=== PATIENT | male | born 1950 | race Caucasian/White ===

== ENCOUNTER 2017-10-29 14:49 | Outpatient (RCR) | payer MEDICARE ==
[~2017-10-29 14:49] MED LIST: AGM875T PO; FLUT16SP22 NS; PRD20T PO; TELM1TAB2 PO
== END 2017-10-31 | disposition home or self-care (01) ==
PROVIDERS: ATTEND Physician Assistant Medical
DX: S46.011D Strain of muscle(s) and tendon(s) of the rotator cuff of right shoulder, subsequent encounter (principal); M25.511 Pain in right shoulder; W19.XXXD Unspecified fall, subsequent encounter

== ENCOUNTER 2017-11-12 13:15 | Outpatient (RCR) | payer MEDICARE | END 2017-11-12 15:42 | disposition home or self-care (01) | PROVIDERS: ATTEND Physician Assistant Medical | DX: S46.011D Strain of muscle(s) and tendon(s) of the rotator cuff of right shoulder, subsequent encounter (principal); M25.511 Pain in right shoulder; W19.XXXD Unspecified fall, subsequent encounter ==

== ENCOUNTER 2017-12-13 05:39 | Outpatient (CLI) | payer MEDICARE ==
[~2017-12-13] VITALS: Ht 175.3 cm; Wt 83.9 kg
[2017-12-13] MEDS ORDERED: HYDR-3820 PO (14:58)
[2017-12-13] MEDS ORDERED: FOLI1TAB24 PO (14:58)
[2017-12-13] MEDS ORDERED: BENA40TA5 PO (14:58)
[2017-12-13] MEDS ORDERED: FURO20TA4 PO (14:58)
[2017-12-13] MEDS ORDERED: ALLO100T PO (14:58)
[2017-12-13] MEDS ORDERED: APIX2.5T PO (14:58)
== END 2017-12-13 15:02 | disposition home or self-care (01) ==
LOC: PREOP 05:39
PROVIDERS: ATTEND Surgery
DX: Z01.818 Encounter for other preprocedural examination (principal)

== ENCOUNTER 2020-04-10 05:37 | Outpatient (RCR) | payer MEDICARE ==
[~2020-04-10] VITALS: Ht 175 cm; Wt 83.1 kg
[~2020-04-10 05:37] MED LIST changes: +ACET-2267 PO; +ACHYD1T PO; +ALLO100T PO; +APIX2.5T PO; +BENA40TA5 PO; +BIOT5CAP9 PO; +FOLI1TAB24 PO; +FURO20TA4 PO; +GABA-486 PO; +LEVO75TA PO; +RIVA10TA PO; +TRM50T PO
== END 2020-04-10 13:11 | disposition home or self-care (01) ==
LOC: PREOP 05:37
PROVIDERS: ATTEND Specialist
DX: Z01.812 Encounter for preprocedural laboratory examination (principal); Z20.828 Contact with and (suspected) exposure to other viral communicable diseases
CPT/HCPCS: 87635

== ENCOUNTER 2020-04-12 06:08 | Day surgery (SDC) | payer MEDICARE ==
[~2020-04-12] VITALS: Ht 175 cm; Wt 83.1 kg
[2020-04-12] MEDS ORDERED: POVIDONE (BETADINE) OPHTH SOLN 5% 30 ML OP ONE (06:15)
[2020-04-12] MEDS ORDERED: LIDOCAINE PF 1% 2 ML VIAL IR PRN (06:15)
[2020-04-12] MEDS ORDERED: MOXIFLOXACIN OPHTH SOLN 5 MG/ML 0.3 ML SYRINGE OP ONE (06:15)
[2020-04-12] MEDS ORDERED: TIMOLOL MALEATE 0.5% 5 ML (TIMOPTIC) BTL OU PRN (06:15)
[2020-04-12] MEDS: TETRACAINE 0.5% OPHTH SOLN 4 ML BTL (SINGLE DOSE ONLY) OU PRN ×4 (06:25→06:49)
[2020-04-12 06:30] VITALS: BP 134/91
[2020-04-12] MEDS: TROPICAMIDE 1% OPH SOLN (MYDRIACYL) 15 ML BTL OP SCH ×3 (06:33→06:49)
[2020-04-12] MEDS: PHENYLEPHRINE 10% OPHTH (NEO-SYN) 5 ML BTL OU SCH ×3 (06:33→06:49)
[2020-04-12] MEDS ORDERED: MIDAZOLAM 2 MG/2 ML (VERSED) VIAL ONE (07:29)
--- NOTE | 2020-04-12 07:30 | Ophthalmologist Pre-Op Note ---
Pre-Operative Progress Note H&P Reviewed The H&P was reviewed, patient examined and no changes noted. Date H&P Reviewed: Apr 12, 2020 Time H&P Reviewed: 07:30 Pre-Op Dx Cataract, Right Eye AMAURI ARTIS MD Apr 12, 2020 07:30
--- NOTE | 2020-04-12 07:50 | Ophthalmology Operative Report ---
Cataract removal/placement IOL PREOPERATIVE DIAGNOSIS: Cataract Right Eye POSTOPERATIVE DIAGNOSIS: Cataract Right Eye PROCEDURE: Cataract removal and placement of posterior chamber implant, right eye SURGEON: Mj Artis ANESTHESIA: Topical with sedation COMPLICATIONS: None ESTIMATED BLOOD LOSS: Minimal DESCRIPTION OF PROCEDURE: After proper informed consent was obtained, the patient, a 70 male, was taken to the Operating Room and the right eye was anesthetized with tetracaine. The right eye was then prepped and draped in the usual manner. A wire lid speculum was placed. A paracentesis was made at the left hand position. Preservative free lidocaine was injected into the anterior chamber followed by viscoelastic. A clear corneal incision was made in the temporal position. A capsulorrhexis was preformed and the central nuclear and cortical material were removed. The posterior capsule was polished and Emil 17.0 AU00T0 IOL was placed into the capsular bag. The residual viscoelastic was aspirated and balanced saline solution was injected into the anterior chamber. Moxifloxacin was injected into the anterior chamber. The wound was checked and found to be water tight. The patient tolerated the procedure well without complications. MJ ARTIS MD Apr 12, 2020 07:50
[2020-04-12 08:00] VITALS: BP 118/80
--- NOTE | 2020-04-12 10:15 | Anesthesia-General Post-Op ---
MAC Patient Condition Mental Status/LOC: Same as Preop Cardiovascular: Satisfactory Nausea/Vomiting: Absent Respiratory: Satisfactory Pain: Controlled Complications: Absent Post Op Complications Complications None Follow Up Care/Instructions Patient Instructions None needed. Anesthesiology Discharge Order Discharge Order Patient is doing well, no complaints, stable vital signs, no apparent adverse anesthesia problems. No complications reported per nursing. LOKI ZAMARRIPA CRNA Apr 12, 2020 10:15
[2020-04-12] MEDS ORDERED: acetaZOLAMIDE ER 500 MG CAP (DIAMOX SEQUELS) PO ONE (12:00)
== END 2020-04-12 08:00 | disposition home or self-care (01) ==
LOC: SDC 06:08
PROVIDERS: ATTEND Specialist
DX: H25.11 Age-related nuclear cataract, right eye (principal); I10 Essential (primary) hypertension; M06.9 Rheumatoid arthritis, unspecified; M19.90 Unspecified osteoarthritis, unspecified site; Z79.899 Other long term (current) drug therapy; Z80.8 Family history of malignant neoplasm of other organs or systems
CPT/HCPCS: 66984; V2632

== ENCOUNTER 2020-05-01 05:34 | Outpatient (RCR) | payer MEDICARE ==
[~2020-05-01] VITALS: Ht 175.3 cm; Wt 84.1 kg
[~2020-05-01 05:34] MED LIST changes: +ACHD5005 PO; +CYAN100088 PO; +CYCL5TAB PO; +GABA300C PO
== END 2020-05-01 10:16 | disposition home or self-care (01) ==
LOC: PREOP 05:34
PROVIDERS: ATTEND Specialist
DX: Z01.812 Encounter for preprocedural laboratory examination (principal); Z20.828 Contact with and (suspected) exposure to other viral communicable diseases
CPT/HCPCS: 87635

== ENCOUNTER 2020-05-03 08:09 | Day surgery (SDC) | payer MEDICARE ==
[~2020-05-03] VITALS: Ht 175.3 cm; Wt 84.1 kg
[2020-05-03] MEDS ORDERED: MIDAZOLAM 2 MG/2 ML (VERSED) VIAL ONE (08:15)
[2020-05-03 08:30] VITALS: BP 114/78
[2020-05-03] MEDS ORDERED: POVIDONE (BETADINE) OPHTH SOLN 5% 30 ML OP ONE (08:30)
[2020-05-03] MEDS ORDERED: LIDOCAINE PF 1% 2 ML VIAL IR PRN (08:30)
[2020-05-03] MEDS ORDERED: TIMOLOL MALEATE 0.5% 5 ML (TIMOPTIC) BTL OU PRN (08:30)
[2020-05-03] MEDS ORDERED: MOXIFLOXACIN OPHTH SOLN 5 MG/ML 0.3 ML SYRINGE OP ONE (08:30)
[2020-05-03] MEDS: TETRACAINE 0.5% OPHTH SOLN 4 ML BTL (SINGLE DOSE ONLY) OU PRN ×4 (08:34→08:58)
[2020-05-03] MEDS: PHENYLEPHRINE 10% OPHTH (NEO-SYN) 5 ML BTL OU SCH ×3 (08:45→08:58)
[2020-05-03] MEDS: TROPICAMIDE 1% OPH SOLN (MYDRIACYL) 15 ML BTL OP SCH ×3 (08:45→08:58)
--- NOTE | 2020-05-03 09:15 | Ophthalmologist Pre-Op Note ---
Pre-Operative Progress Note H&P Reviewed The H&P was reviewed, patient examined and no changes noted. Date H&P Reviewed: May 03, 2020 Time H&P Reviewed: 09:15 Pre-Op Dx Cataract, Left Eye AMAURI RATIS MD May 03, 2020 09:15
--- NOTE | 2020-05-03 09:35 | Ophthalmology Operative Report ---
Cataract removal/placement IOL PREOPERATIVE DIAGNOSIS: Cataract Left Eye POSTOPERATIVE DIAGNOSIS: Cataract Left Eye PROCEDURE: Cataract removal and placement of posterior chamber implant, left eye SURGEON: Mj Artis ANESTHESIA: Topical with sedation COMPLICATIONS: None ESTIMATED BLOOD LOSS: Minimal DESCRIPTION OF PROCEDURE: After proper informed consent was obtained, the patient, a 70 male, was taken to the Operating Room and the left eye was anesthetized with tetracaine. The left eye was then prepped and draped in the usual manner. A wire lid speculum was placed. A paracentesis was made at the left hand position. Preservative free lidocaine was injected into the anterior chamber followed by viscoelastic. A clear corneal incision was made in the temporal position. A capsulorrhexis was preformed and the central nuclear and cortical material were removed. The posterior capsule was polished and an Emil 17.0 AU00T0 was placed into the capsular bag. The residual viscoelastic was aspirated and balanced saline solution was injected into the anterior chamber. Moxifloxacin was injected into the anterior chamber. The wound was checked and found to be water tight. The patient tolerated the procedure well without complications. MJ ARTIS MD May 03, 2020 09:35
[2020-05-03 09:45] VITALS: BP 116/72
[2020-05-03] MEDS ORDERED: acetaZOLAMIDE ER 500 MG CAP (DIAMOX SEQUELS) PO ONE (10:00)
--- NOTE | 2020-05-03 11:14 | Anesthesia-General Post-Op ---
MAC Patient Condition Mental Status/LOC: Same as Preop Cardiovascular: Satisfactory Nausea/Vomiting: Absent Respiratory: Satisfactory Pain: Controlled Complications: Absent Post Op Complications Complications None Follow Up Care/Instructions Patient Instructions None needed. Anesthesiology Discharge Order Discharge Order Patient is doing well, no complaints, stable vital signs, no apparent adverse anesthesia problems. No complications reported per nursing. NICHOLAS JOSEPH CRNA May 03, 2020 11:14
== END 2020-05-03 09:45 | disposition home or self-care (01) ==
LOC: SDC 08:09
PROVIDERS: ATTEND Specialist
DX: H25.12 Age-related nuclear cataract, left eye (principal); I10 Essential (primary) hypertension; M19.90 Unspecified osteoarthritis, unspecified site; Z79.899 Other long term (current) drug therapy; Z80.8 Family history of malignant neoplasm of other organs or systems
CPT/HCPCS: 66984; V2632

== ENCOUNTER → 2020-12-25 | Outpatient (CLI) | payer MEDICARE ==
[~2020-12-25] MED LIST changes: -FOLI1TAB24 PO; +FOLI1TAB33 PO
[2020-12-25 14:45] LABS: ABSOLUTE RETIC # 62 10e9/uL (24-90); RETICULOCYTE % 1.97 % (0.50-2.40)
[2020-12-25 17:11] LABS: BASOPHILS % (AUTO) 0 % (0-10); EOSINOPHILS % (AUTO) 0 % (0-10); HEMATOCRIT 29 % (40-54); LYMPHOCYTES # (AUTO) 0.7 10^3/uL (1.0-4.0); LYMPHOCYTES % (AUTO) 10 % (12-44); MEAN CORPUSCULAR VOLUME 93 fL (80-99); MONOCYTES # (AUTO) 0.8 10^3/uL (0.0-1.0); MONOCYTES % (AUTO) 11 % (0-12); NEUTROPHILS # (AUTO) 5.4 10^3/uL (1.8-7.8); NEUTROPHILS % (AUTO) 78 % (42-75); PLATELET COUNT 178 10^3/uL (130-400)
[2020-12-25 17:19] LABS: LYMPHOCYTES % (MANUAL) 11 %; MONOCYTES % (MANUAL) 19 %; NEUTROPHILS % (MANUAL) 70 %
[2020-12-25 17:20] LABS: ANISOCYTOSIS SLIGHT; HYPOCHROMASIA SLIGHT
[2020-12-25 17:38] LABS: HEMOGLOBIN 8.8 g/dL (13.3-17.7); MEAN CORPUSCULAR HEMOGLOBIN 28 pg (25-34); MEAN CORPUSCULAR HGB CONC 30 g/dL (32-36); MEAN PLATELET VOLUME 10.3 fL (9.0-12.2)
== END ==
LOC: LABNPT 14:34
PROVIDERS: ATTEND Pathology Anatomic Pathology & Clinical Pathology
DX: D64.9 Anemia, unspecified (principal)
CPT/HCPCS: 85007; 85027; 85045; 85055

== ENCOUNTER 2021-07-04 12:32 | Outpatient (CLI) | payer MEDICARE ==
[~2021-07-04] VITALS: Ht 175.3 cm; Wt 78.7 kg
[~2021-07-04 12:32] MED LIST changes: -BENA40TA5 PO; +BENA40TA84 PO
[2021-07-08] MEDS ORDERED: TRM50T PO (14:53)
== END 2021-07-08 17:33 ==
LOC: PREOP 12:32
PROVIDERS: ATTEND Specialist
DX: Z01.818 Encounter for other preprocedural examination (principal)

== ENCOUNTER 2021-07-11 08:52 | Day surgery (SDC) | payer MEDICARE ==
[~2021-07-11] VITALS: Ht 175.3 cm; Wt 78.7 kg
[2021-07-11 09:15] VITALS: BP 110/76
[2021-07-11] MEDS ORDERED: TROPICAMIDE 1% OPH SOLN (MYDRIACYL) 15 ML BTL OU PRN (09:15)
[2021-07-11] MEDS ORDERED: PHENYLEPHRINE 10% OPHTH (NEO-SYN) 5 ML BTL OU PRN (09:15)
[2021-07-11] MEDS: TETRACAINE 0.5% OPHTH SOLN 4 ML BTL (SINGLE DOSE ONLY) OU PRN ×2 (09:18→09:22)
[2021-07-11 10:00] VITALS: BP 110/76
--- NOTE | 2021-07-11 10:19 | Ophthalmologist Pre-Op Note ---
Pre-Operative Progress Note H&P Reviewed The H&P was reviewed, patient examined and no changes noted. Date H&P Reviewed: Jul 11, 2021 Time H&P Reviewed: 10:11 Pre-Op Dx Secondary Cataract, Bilateral Eyes AMAURI ARTIS MD Jul 11, 2021 10:19
--- NOTE | 2021-07-11 10:20 | Ophthalmology Operative Report ---
YAG Capsulotomy PREOPERATIVE DIAGNOSIS: Secondary Cataract Bilateral POSTOPERATIVE DIAGNOSIS: Secondary Cataract Bilateral PROCEDURE: YAG Capsulotomy, Bilateral SURGEON: Mj Artis ANESTHESIA: Topical anesthesia COMPLICATIONS: None ESTIMATED BLOOD LOSS: Minimal DESCRIPTION OF PROCEDURE: After proper informed consent was obtained, the patient's, a 71 male , received one drop of Tropicamide and one drop of Tetracaine in each eye. The patient was then placed at the YAG laser and using a power of [3.6 ] millijoules and bursts [ 18] right eye and [ 16] left eye were used to fashion a central capsulotomy. The patient tolerated the procedure well without complications. MJ ARTIS MD Jul 11, 2021 10:20
== END 2021-07-11 10:00 | disposition home or self-care (01) ==
LOC: SDC 08:52
PROVIDERS: ATTEND Specialist
DX: H26.40 Unspecified secondary cataract (principal)

== ENCOUNTER 2021-07-22 13:42 | Outpatient (RCR) | payer MEDICARE | END 2021-07-24 | disposition home or self-care (01) | PROVIDERS: ATTEND Physical Medicine & Rehabilitation | DX: R26.0 Ataxic gait (principal); I10 Essential (primary) hypertension ==

== ENCOUNTER 2021-08-21 12:55 | Outpatient (RCR) | payer MEDICARE | END 2021-08-21 13:00 | disposition home or self-care (01) | PROVIDERS: ATTEND Physical Medicine & Rehabilitation | DX: R26.0 Ataxic gait (principal); M54.50 Low back pain, unspecified; I10 Essential (primary) hypertension ==